=== PATIENT | female | born 1985 | race Caucasian/White ===

== ENCOUNTER → 2017-09-25 | Outpatient (CLI) | payer BC ==
[~2017-09-25] MED LIST: ACYSUS PO
--- NOTE | 2017-09-25 11:31 | Diagnostic Imaging Report ---
PROCEDURE: US Non-ob pelvis comp/trans. TECHNIQUE: Multiple realtime grayscale images were obtained of the pelvis in various projections endovaginally. Transabdominal imaging was also performed. INDICATION: Ovarian dysfunction and follicular monitoring. No prior studies are available for comparison. The uterus measures 7.7 x 4.6 x 4.2 cm. No myometrial mass is identified. The endometrium is 4 mm in thickness. The right ovary measures 3.9 x 5.1 x 3.1 cm and contains a 3.6 x 3.6 x 3.0 cm cyst. There is also a 1.1 x 1.2 x 1.9 cm cyst. Several subcentimeter follicles in the right ovary are also noted. The left ovary contains a 4.1 x 4.3 x 3.8 cm cyst. No free fluid is seen. IMPRESSION: Bilateral ovarian cysts, as described. Dictated by: Dictated on workstation # [id number]
== END ==
LOC: RAD 09:05
PROVIDERS: ATTEND Obstetrics & Gynecology Reproductive Endocrinology
DX: N83.202 Unspecified ovarian cyst, left side (principal); N83.201 Unspecified ovarian cyst, right side
CPT/HCPCS: 36415; 76830; 76856; 82670; 83001; 83002; 84144; 84443

== ENCOUNTER → 2017-10-02 | Outpatient (CLI) | payer BC ==
--- NOTE | 2017-10-02 09:25 | Diagnostic Imaging Report ---
INDICATION: Follicular monitoring. TECHNIQUE: Real-time grayscale images were obtained of the pelvis in various projections both transabdominally and endovaginally. FINDINGS: Uterus measures 9.6 x 6.1 x 5 cm. Endometrial thickness is 1 cm. There are no myometrial or endometrial masses. Both ovaries are normal in size, morphology and demonstrate normal blood flow. There are several cysts in the right ovary. Largest measures 4.1 x 3.5 cm. Second measures 2.2 x 1.3 cm. Third measures 1.4 x 1.3 cm. There is also cyst in the left ovary measuring up to 4.7 x 4.1 cm. Both of these largest cysts are slightly larger when compared to prior examination from 09/25/17. IMPRESSION: Bilateral ovarian cyst as described right greater than left. Dictated by: Dictated on workstation # [id number]
== END ==
LOC: RAD 07:38
PROVIDERS: ATTEND Obstetrics & Gynecology Reproductive Endocrinology
DX: N83.201 Unspecified ovarian cyst, right side (principal); N83.202 Unspecified ovarian cyst, left side
CPT/HCPCS: 36415; 76830; 76856; 82670; 83002; 84144

== ENCOUNTER → 2017-10-04 | Outpatient (CLI) | payer BC ==
--- NOTE | 2017-10-04 10:34 | Diagnostic Imaging Report ---
Examination: Pelvic ultrasound Indication: Follicular monitoring Transvaginal imaging was utilized. The recent exam of 10/02/2017 noted cysts associated with both ovaries. This included a 4.1 x 3.5 CM cyst arising from the right ovary. That cyst is again identified and has decreased in size and now measures 3.4 x 3.5 x 2.4 CM. The prior exam also revealed 2 other cysts associated with the right ovary measuring 2.2 x 1.1 and 1.4 x 1.3 CM. The cysts now measure 2.1 x 1.3 CM and 1.3 x 1.6 CM. In addition since the previous exam 5 other cysts/follicles have developed on the right ovary. These cysts/follicles measure 1.1 x 1.1 CM, 0.7 x 0.8 CM, 0.9 x 0.9 CM, 1.0 x 0.9 CM and 1.0 x 0.8 CM. The previous study also identified a 4.7 x 4.1 CM cysts associated with the left ovary. That cyst is again identified and now measures 4.8 x 3.9 CM. There is good blood flow to each ovary. The uterus is nongravid and similar in size to the prior exam. The uterus measures 9.3 x 5.5 x 5.2 CM. The endometrial lining measures 10 MM. There is no focal mass involving the uterus to suggest a fibroid. There is no solid pelvic mass or free fluid collection to indicate an acute abnormality. Impression: 1. There has been increase in number cysts/follicles arising from the right ovary in the interval since the prior exam. The largest cysts associated with both ovaries seen previously are again evident and not significantly changed. 2. There is no acute pelvic abnormality evident. Dictated by: Dictated on workstation # [id number]
== END ==
LOC: RAD 07:42
PROVIDERS: ATTEND Obstetrics & Gynecology Reproductive Endocrinology
DX: E28.9 Ovarian dysfunction, unspecified (principal)
CPT/HCPCS: 36415; 76830; 76856; 82670; 83002; 84144

== ENCOUNTER → 2018-06-01 | Outpatient (CLI) | payer BC | LOC: LAB 07:44 | PROVIDERS: ATTEND Obstetrics & Gynecology Reproductive Endocrinology | DX: Z31.49 Encounter for other procreative investigation and testing (principal) | CPT/HCPCS: 36415; 82670; 84144; 84443; 84702 ==

== ENCOUNTER → 2018-06-26 | Outpatient (CLI) | payer BC ==
[2018-06-26 08:13] LABS: BASOPHILS % (AUTO) 0 % (0-10); EOSINOPHILS # (AUTO) 0.1 10^3/uL (0.0-0.3); EOSINOPHILS % (AUTO) 3 % (0-10); HEMATOCRIT 41 % (35-52); HEMOGLOBIN 14.3 G/DL (11.5-16.0); LYMPHOCYTES # (AUTO) 1.3 X 10^3 (1.0-4.0); LYMPHOCYTES % (AUTO) 26 % (12-44); MEAN CORPUSCULAR HEMOGLOBIN 30 PG (25-34); MEAN CORPUSCULAR HGB CONC 35 G/DL (32-36); MEAN CORPUSCULAR VOLUME 87 FL (80-99); MONOCYTES # (AUTO) 0.4 X 10^3 (0.0-1.0); MONOCYTES % (AUTO) 8 % (0-12); NEUTROPHILS # (AUTO) 3.1 X 10^3 (1.8-7.8); NEUTROPHILS % (AUTO) 64 % (42-75); PLATELET COUNT 182 10^3/uL (130-400); RED CELL DISTRIBUTION WIDTH 12.8 % (10.0-14.5); WHITE BLOOD COUNT 4.8 10^3/uL (4.3-11.0)
[2018-06-26 08:30] LABS: INR 0.9 (0.8-1.4); PROTHROMBIN TIME PATIENT 12.3 SEC (12.2-14.7)
[2018-06-26 08:39] LABS: ALANINE AMINOTRANSFERASE 25 U/L (0-55); ALBUMIN 4.4 GM/DL (3.2-4.5); ALKALINE PHOSPHATASE 68 U/L (40-136); BILIRUBIN,TOTAL 0.5 MG/DL (0.1-1.0); BUN/CREATININE RATIO 14; CALCIUM 9.7 MG/DL (8.5-10.1); CARBON DIOXIDE 22 MMOL/L (21-32); CHLORIDE 105 MMOL/L (98-107); CREATININE SERUM 0.73 MG/DL (0.60-1.30); GFR ESTIMATED > 60; GLUCOSE 92 MG/DL (70-105); SODIUM 137 MMOL/L (135-145); TOTAL PROTEIN 7.4 GM/DL (6.4-8.2); URIC ACID 5.7 MG/DL (2.6-7.2)
[2018-06-26 08:58] LABS: FREE T4 (FREE THYROXINE) 1.05 NG/DL (0.70-1.48)
[2018-06-26 09:49] LABS: BAND NEUTROPHILS 0 %; BASOPHILS % (MANUAL) 1 %; EOSINOPHILS % (MANUAL) 5 %; LYMPHOCYTES % (MANUAL) 28 %; MONOCYTES % (MANUAL) 5 %; NEUTROPHILS % (MANUAL) 61 %; RBC MORPH NORMAL
== END ==
LOC: LAB 07:43
PROVIDERS: ATTEND Nurse Practitioner Family
DX: E28.2 Polycystic ovarian syndrome (principal); L68.0 Hirsutism; E88.81 Metabolic syndrome and other insulin resistance; Z79.899 Other long term (current) drug therapy
CPT/HCPCS: 36415; 80053; 82024; 82306; 82533; 82627; 82728; 83540; 83735; 84439; 84482; 84550; 84681; 85007; 85027; 85610; 86038

== ENCOUNTER 2018-08-06 16:36 | Emergency (ER) | payer BC ==
[~2018-08-06] VITALS: Ht 188 cm; Wt 140.6 kg
--- OUTSIDE RECORDS SUMMARY | 2018-08-06 16:52 | XMS REPORT | Continuity of Care Document ---
Author Organization Unknown Address Unknown Allergies There is no data. Medications There is no data. Problems Date Dx Coded Attending Type Code Diagnosis Diagnosed By 10/11/2007 JOHN CARRINGTON APRN 278.00 OBESITY UNSPECIFIED 10/11/2007 JOHN CARRINGTON APRN 724.5 BACKACHE UNSPECIFIED 10/11/2007 JOHN CARRINGTON APRN 796.2 ELEVATED BLOOD PRESSURE READING WITHOUT DIAGNOSIS OF HYPERTENSION 10/11/2007 JOHN CARRINGTON APRN V25.40 CONTRACEPTIVE SURVEILLANCE UNSPECIFIED 12/18/2007 JOHN CARRINGTON APRN 477.9 RHINITIS ALLERGIC 03/04/2010 JOHN CARRINGTON APRN 462 PHARYNGITIS ACUTE 03/04/2010 JOHN CARRINGTON APRN 526.9 UNSPECIFIED DISEASE OF THE JAWS 09/11/2013 JOHN CARRINGTON APRN V70.5 PREEMPLOYMENT/PRESCHOOL EXAM Procedures There is no data. Results There is no data. Encounters ACCT No. Visit Date/Time Discharge Status Pt. Type Provider Facility Loc./Unit Complaint [id number] 09/11/2013 09:56:00 09/11/2013 23:59:59 CLS Outpatient JOHN CARRINGTON APRN [id number] 12/02/2014 08:33:03 ACT Document Registration
[2018-08-06] MEDS ORDERED: TETANUS,DIPTH,PERTUSS P/F (BOOSTRIX) 0.5 ML VIAL IM ONE (17:00)
[2018-08-06] MEDS ORDERED: AUGMENTIN 875 MG TAB (AMOXICILLIN/CLAVULANATE) PO SCH (17:00)
[2018-08-06 17:01] VITALS: BP 202/117
[2018-08-06] MEDS ORDERED: AMOX-358 PO (17:01)
--- NOTE | 2018-08-06 17:02 | ED Integumentary General ---
General Chief Complaint: Bite-Animal/Human/Insect Stated Complaint: DOG BITES/SCRATCHES ON BILAT ARMS Nursing Triage Note: PT WAS ATTACKED BY A DOG. DOG IS UNKNOWN DOG AND UNKNOWN IMMUNIZATION STATUS. PT DOES NOT KNOW LAST TDAP SHOT. PT HAS MULTIPLE PUNCTURE WOUNDS THROUGHOUT BILAT ARMS AND HANDS. PRIOR TO ARRIVAL EMS WASHED AND CLEANED ALL WOUNDS. Source: patient Exam Limitations: no limitations History of Present Illness Date Seen by Provider: August 06, 2018 Time Seen by Provider: 16:58 Initial Comments 33-year-old female who presents to the emergency room with complaints of numerous puncture wounds to her upper extremities bilaterally. She reports that she was attempting to break up a fight between her dog and a stray dog when the stray dog bit her arms. She was seen and evaluated by EMS on scene and they irrigated her wounds and cleaned thoroughly. The patient is unsure of her last tetanus vaccine. The dog is in custody by animal control and will be monitored due to unknown immunization status. Bleeding is controlled. Timing/Duration: just prior to arrival Location: hands, extremities (upper) Associated Symptoms: denies symptoms Allergies and Home Medications Allergies Coded Allergies: Amoxicillin (Verified Allergy, Intermediate, 06/21/07) Home Medications Acyclovir 200 Mg/5 Ml Oral.susp, 200 MG PO BID Prescribed by: IFEOMA BRUNSON on 03/05/10 0935 Amoxicillin/Potassium Clav 1 Each Tablet, 1 EACH PO BID Prescribed by: SEEMA ROUSE on 08/06/18 1701 Patient Home Medication List Home Medication List Reviewed: Yes Review of Systems Review of Systems Constitutional: see HPI; No chills, No fever Skin: see HPI, other (puncture wound to hand and forearms after getting bit by a dog.) All Other Systems Reviewed Negative Unless Noted: Yes Past Fdhglwb-Fkxcqr-Aemnyk Hx Past Med/Social Hx: Reviewed Nursing Past Med/Soc Hx Patient Social History Alcohol Use: Occasionally Uses Recreational Drug Use: No Smoking Status: Never a Smoker Recent Foreign Travel: No Contact w/Someone Who Travel: No Recent Infectious Disease Expo: No Recent Hopitalizations: No Physical Abuse: No Sexual Abuse: No Mistreated: No Fear: No Immunizations Up To Date Tetanus Booster (TDap): Unknown Seasonal Allergies Seasonal Allergies: No Past Medical History Surgeries: No Respiratory: No Cardiac: Yes Hypertension Neurological: No Genitourinary: No Gastrointestinal: No Musculoskeletal: No Endocrine: No HEENT: No Cancer: No Psychosocial: No Integumentary: No Blood Disorders: No Family Medical History Reviewed Nursing Family Hx Physical Exam Vital Signs Vital Signs - First Documented 08/06/18 08/06/18 16:45 17:01 Temp 97.6 Pulse 113 Resp 18 B/P (MAP) 202/117 (145) Pulse Ox 99 O2 Delivery Room Air Capillary Refill : Less Than 3 Seconds General Appearance: WD/WN, no apparent distress Cardiovascular: normal peripheral pulses, regular rate, rhythm, no edema, no gallop, no JVD, no murmur Respiratory: chest non-tender, lungs clear, normal breath sounds, no respiratory distress, no accessory muscle use Neurologic/Psychiatric: alert, normal mood/affect, oriented x 3 Skin: normal color, warm/dry Skin Problem Location: upper extremities (hand and forearms) Skin Problem Character: other Progress/Results/Core Measures Results/Orders My Orders Orders - SEEMA ROUSE Dipht,Pertuss(Acell),Tet Adult (Boostrix (08/06/18 17:00) Amoxicillin/Clavulanate Tablet (Augmenti (08/06/18 17:00) Vaccine Administration Single (08/06/18 ) Vital Signs/I&O 08/06/18 08/06/18 16:45 17:01 Temp 97.6 97.6 Pulse 113 113 Resp 18 18 B/P (MAP) 202/117 (145) 202/117 (145) Pulse Ox 99 O2 Delivery Room Air Blood Pressure Mean: 145 Departure Impression Primary Impression: Dog bite Disposition: 01 HOME, SELF-CARE Condition: Stable/Unchanged Departure-Patient Inst. Decision time for Depature: 17:00 Referrals: TOMMIE DUNCAN DO (PCP/Family) Primary Care Physician Patient Instructions: Animal Bites (DC) Add. Discharge Instructions: Take medications as directed. Watch for signs of infection such as increased redness, swelling, drainage, pain. Return back to the emergency room for worsening symptoms or concerns as needed. All discharge instructions reviewed with patient and/or family. Voiced understanding. Scripts Amoxicillin/Potassium Clav (Augmentin 875-125 Tablet) 1 Each Tablet 1 EACH PO BID for 7 Days, #14 TAB 0 Refills Prov: SEEMA ROUSE 08/06/18 SEEMA ROUSE August 06, 2018 17:02
== END 2018-08-06 17:45 | disposition home or self-care (01) ==
LOC: EDUNIT# 16:36 → ER 16:37
DX: S41.151A Open bite of right upper arm, initial encounter (principal); S41.152A Open bite of left upper arm, initial encounter; I10 Essential (primary) hypertension; Z23 Encounter for immunization; Z88.0 Allergy status to penicillin; W54.0XXA Bitten by dog, initial encounter
CPT/HCPCS: 90471; 90715; 99284

== ENCOUNTER → 2018-10-01 | Outpatient (CLI) | payer BC ==
[~2018-10-01] MED LIST changes: +AMOX-358 PO
--- NOTE | 2018-10-01 15:18 | Diagnostic Imaging Report ---
PROCEDURE: US NONOB transvaginal. TECHNIQUE: Multiple real-time grayscale images were obtained of the pelvis in various projections endovaginally. INDICATION: Ovarian dysfunction The previous pelvic ultrasound exam performed on 10/04/17 noted that there had been an increase in the number of cysts/follicles arising from the right ovary in the interval since the prior exam of 10/02/2017. The largest cyst on the right ovary measured 2.2 x 1.1 CM. The largest cyst on left ovary measured 4.8 x 3.9 CM. On this study there is only a single benign-appearing cyst associated with the right ovary. This cyst measures 3.9 x 2.2 x 3.9 CM. There may be a small subcentimeter follicle in this area as well. The left ovary could not be identified. The uterus is nongravid and not enlarged measuring 9.1 x 5.8 x 5.0 cm. The endometrial lining is not thickened measuring 8 MM. There is no focal mass involving the uterus to suggest a fibroid. There is no solid pelvic mass or free fluid collection to suggest an acute abnormality. IMPRESSION: 1. There is now only a single benign-appearing 3.9 x 3.9 CM cyst associated with the right ovary. The left ovary could not be visualized. 2. There is no pelvic mass or free fluid collection noted to suggest an acute abnormality. 3. The uterus is unremarkable. Dictated by: Dictated on workstation # [id number]
== END ==
LOC: RAD 13:17
PROVIDERS: ATTEND Obstetrics & Gynecology Reproductive Endocrinology
DX: N83.201 Unspecified ovarian cyst, right side (principal)
CPT/HCPCS: 76830

== ENCOUNTER → 2021-10-04 | Outpatient (CLI) | payer BC ==
--- NOTE | 2021-10-05 10:12 | Diagnostic Imaging Report ---
Indication: Baseline bilateral digital screening with CAD 3-D CAD is utilized. The current study was also evaluated with a Computer Aided Detection (CAD) system. No priors FINDINGS: Density 2. No breast mass, spiculated lesion, architectural distortion, suspicious calcifications or evidence for malignancy. Skin, nipples and axilla within normal limits. No suspect calcifications. IMPRESSION: Negative baseline screening mammograms BI-RADS Category 1 ACR BI-RADS Category 1: Negative. Result letter will be mailed to the patient. Note: At least 10% of breast cancer is not imaged by mammography. Dictated by: Dictated on workstation # [id number]
== END ==
LOC: RAD 10:15
PROVIDERS: ATTEND Obstetrics & Gynecology
DX: Z12.31 Encounter for screening mammogram for malignant neoplasm of breast (principal)
CPT/HCPCS: 77063; 77067

== ENCOUNTER 2021-12-05 11:27 | Emergency (ER) | payer BC ==
[~2021-12-05] VITALS: Ht 188 cm; Wt 150.0 kg
--- NOTE | 2021-12-05 12:00 | ED Integumentary General ---
General Chief Complaint: Skin/Wound Problems Stated Complaint: RASH ON LOWER LEGS/FEVER/RIGHT LEG PAIN Nursing Triage Note: PT TO ER WITH C/O FEVER, BODY ACHES AND POSS BITE WITH RASH ON R ANKLE. PT STATES SHE CANNOT BEAR WEIGHT ON THE R ANKLE DUE TO PAIN. THE PAIN STARTED YESTERDAY (BHAVANI SIDHU) History of Present Illness Date Seen by Provider: Dec 05, 2021 Time Seen by Provider: 11:35 Initial Comments 36-year-old female presents for right ankle pain. She reports symptoms beginning 2 days ago, no injury or known insect bites. No tick bites in the recent or remote past. She was at the [employer] walk on 12/03/21 and after walking around she noted a rash to her right ankle/foot, mild fever yesterday and pain to the point she couldn't walk on her right leg. She hasn't taken her b/p medicine or any medications for 2 days, because of limited activity. No calf pain. Mild myalgias, generalized. She took Tylenol 1 hour STRATEGY INTERN. Severity: mild Location: extremities (riight LE) Possible Cause: no cause identified Associated Symptoms: change in skin texture, edema (BHAVANI SIDHU) Allergies and Home Medications Allergies Coded Allergies: Amoxicillin (Verified Allergy, Intermediate, 06/21/07) Patient Home Medication List Home Medication List Reviewed: Yes (BHAVANI SIDHU) Acyclovir (Acyclovir) 200 Mg/5 Ml Oral.susp, 200 MG PO BID Prescribed by: IFEOMA BRUNSON on 03/05/10 0935 Amoxicillin/Potassium Clav (Augmentin 875-125 Tablet) 1 Each Tablet, 1 EACH PO BID Prescribed by: SEEMA ROUSE on 08/06/18 1701 Cephalexin (Cephalexin) 500 Mg Tablet, 500 MG PO QID Prescribed by: BHAVANI SIDHU on 12/05/21 1221 Review of Systems Review of Systems Constitutional: no symptoms reported, see HPI Musculoskeletal: see HPI, joint pain (Right ankle and foot) Skin: see HPI, change in color (Erythema), rash (BHAVANI SIDHU) All Other Systems Reviewed Negative Unless Noted: Yes (BHAVANI SIDHU) Past Nrkczkr-Kpvdxv-Twivdt Hx Immunizations Up To Date Tetanus Booster (TDap): Unknown (BHAVANI SIDHU) Seasonal Allergies Seasonal Allergies: No (BHAVANI SIDHU) Past Medical History Surgeries: No Respiratory: No Cardiac: Yes Hypertension Neurological: No Last Menstrual Period: Nov 14, 2021 Genitourinary: No Gastrointestinal: No Musculoskeletal: No Endocrine: No HEENT: No Cancer: No Psychosocial: No Integumentary: No Blood Disorders: No (NAHUMBHAVANI HERRERA) Family Medical History Reviewed Nursing Family Hx (NAHUMBHAVANI HERRERA) Physical Exam Vital Signs Vital Signs - First Documented 12/05/21 12/05/21 11:32 12:29 Temp 37.0 Pulse 113 Resp 18 B/P (MAP) 168/116 (133) Pulse Ox 96 (JASON,BRANDY L DO) Vital Signs Capillary Refill : (NAHUMBHAVANI HERRERA) General Appearance: WD/WN, no apparent distress Cardiovascular: normal peripheral pulses, regular rate, rhythm, no edema Respiratory: chest non-tender, lungs clear Gastrointestinal: normal bowel sounds, non tender, soft Neurologic/Psychiatric: no motor/sensory deficits, alert, normal mood/affect, oriented x 3 Skin: normal color, warm/dry Skin Problem Location: lower extremities (Right, ankle/foot) Skin Problem Character: macules, papules, swelling, tenderness Lymphatic: no adenopathy (NAHUMBHAVANI HERRERA) Progress/Results/Core Measures Results/Orders Vital Signs/I&O 12/05/21 12/05/21 11:32 12:29 Temp 37.0 Pulse 113 103 Resp 18 18 B/P (MAP) 168/116 (133) 144/91 Pulse Ox 96 (JASON,BRANDY L DO) Blood Pressure Mean: 133 Diagnostic Imaging Diagonstic Imaging: Xray Plain Films/CT/US/NM/MRI: ankle Comments NAME: DAM[facility]N [facility] REC#: [id number] PT STATUS: REG ER : 1985 PHYSICIAN: BHAVANI SIDHU ADMIT DATE: 12/05/21/ER Draft Date of Exam:12/05/21 ANKLE, RIGHT, 3 VIEWS INDICATION: Ankle pain COMPARISON: None available TECHNIQUE: 3 radiographs of the right ankle dated 12/05/2021 FINDINGS: No acute fracture or dislocation. No destructive osseous process. The talar dome is unremarkable. Ankle mortise is symmetric. Moderate sized plantar calcaneal enthesophyte. Soft tissue swelling about the ankle, particularly laterally. No suspicious radiopaque foreign body. IMPRESSION: No acute osseous abnormality with soft tissue swelling about the ankle, particularly laterally. Dictated on workstation # [id number] Dict: 12/05/21 1205 Trans: 12/05/21 1207 CV [id number] Interpreted by: KEVIN BURDEN MD Electronically signed by: Reviewed: Reviewed by Me (BHAVANI SIDHU) Departure Communication (Admissions) Conservative care with anti-inflammatories, Tylenol and ice. Patient declines crutches. (BRANDY GOMEZ DO) Impression Primary Impression: Cellulitis Qualified Codes: L03.115 - Cellulitis of right lower limb Additional Impression: Right ankle pain Qualified Codes: M25.571 - Pain in right ankle and joints of right foot Disposition: HOME, SELF-CARE Condition: Improved Departure-Patient Inst. Decision time for Depature: 11:50 (BHAVANI SIDHU) Referrals: TOMMIE DUNCAN DO (PCP/Family) Primary Care Physician Patient Instructions: Cellulitis (Skin Infection), Adult (DC) Add. Discharge Instructions: Take antibiotics as prescribed. Alternate between Tylenol 650 mg and ibuprofen 600 mg every 4 hours for pain. Elevate your right ankle higher than your heart. You can apply ice packs to your right ankle every 2 hours for 20 minutes, avoid plain heat. Follow-up with your primary care provider if symptoms or not improving or worsen. Take all of your routine medications as prescribed. Return to the emergency department for new, urgent healthcare needs. All discharge instructions reviewed with patient and/or family. Voiced understanding. Scripts Cephalexin (Cephalexin) 500 Mg Tablet 500 MG PO QID, #28 TAB 0 Refills Prov: BHAVANI SIDHU 12/05/21 BHAVANI SIDHU Dec 05, 2021 12:00 BRANDY GOMEZ DO Dec 05, 2021 14:59
--- NOTE | 2021-12-05 12:07 | Diagnostic Imaging Report ---
INDICATION: Ankle pain COMPARISON: None available TECHNIQUE: 3 radiographs of the right ankle dated 12/05/2021 FINDINGS: No acute fracture or dislocation. No destructive osseous process. The talar dome is unremarkable. Ankle mortise is symmetric. Moderate sized plantar calcaneal enthesophyte. Soft tissue swelling about the ankle, particularly laterally. No suspicious radiopaque foreign body. IMPRESSION: No acute osseous abnormality with soft tissue swelling about the ankle, particularly laterally. Dictated by: Dictated on workstation # [id number]
[2021-12-05] MEDS ORDERED: CEPH500T PO (12:21)
[2021-12-05 12:29] VITALS: BP 144/91
== END 2021-12-05 12:29 | disposition home or self-care (01) ==
LOC: EDUNIT# 11:27 → ER 11:30
DX: L03.115 Cellulitis of right lower limb (principal)
CPT/HCPCS: 73610

== ENCOUNTER → 2021-12-07 | Outpatient (CLI) | payer BC ==
[~2021-12-07] MED LIST changes: +CEPH500T PO
[2021-12-07 12:09] LABS: BASOPHILS % (AUTO) 0 % (0-10); EOSINOPHILS # (AUTO) 0.1 10^3/uL (0.0-0.3); EOSINOPHILS % (AUTO) 2 % (0-10); HEMATOCRIT 38 % (35-52); HEMOGLOBIN 12.7 g/dL (11.5-16.0); LYMPHOCYTES % (AUTO) 15 % (12-44); MEAN CORPUSCULAR HEMOGLOBIN 29 pg (25-34); MEAN CORPUSCULAR HGB CONC 33 g/dL (32-36); MEAN CORPUSCULAR VOLUME 88 fL (80-99); MONOCYTES # (AUTO) 0.5 10^3/uL (0.0-1.0); MONOCYTES % (AUTO) 8 % (0-12); NEUTROPHILS # (AUTO) 4.7 10^3/uL (1.8-7.8); NEUTROPHILS % (AUTO) 74 % (42-75); PLATELET COUNT 192 10^3/uL (130-400); WHITE BLOOD COUNT 6.3 10^3/uL (4.3-11.0)
[2021-12-07 12:31] LABS: ERYTHROCYTE SEDIMENTATION RATE 39 MM/HR (0-20)
[2021-12-07 12:35] LABS: ALBUMIN 3.6 GM/DL (3.2-4.5); BILIRUBIN,TOTAL 0.3 MG/DL (0.1-1.0); CALCIUM 9.3 MG/DL (8.5-10.1); CREATININE SERUM 0.72 MG/DL (0.60-1.30); POTASSIUM 4.3 MMOL/L (3.6-5.0); TOTAL PROTEIN 7.3 GM/DL (6.4-8.2)
[2021-12-07 13:08] LABS: BILIRUBIN,URINE NEGATIVE (NEGATIVE); CLARITY,URINE CLEAR; COLOR,URINE YELLOW; GLUCOSE, URINE (UA) NEGATIVE (NEGATIVE); KETONES,URINE NEGATIVE (NEGATIVE); LEUKOCYTE ESTERASE ,URINE NEGATIVE (NEGATIVE); NITRITE,URINE NEGATIVE (NEGATIVE); PROTEIN,URINE TRACE (NEGATIVE)
--- NOTE | 2021-12-07 13:55 | Diagnostic Imaging Report ---
PROCEDURE: US right lower extremity venous. TECHNIQUE: Multiple real-time grayscale images were obtained over the right lower extremity in various projections. Additional spectral analysis and color Doppler duplex images were also obtained. INDICATION: Right leg swelling. FINDINGS: Continuous venous flow is present. No intraluminal filling defect is identified. There is normal compressibility and response to augmentation. No abnormal perivascular fluid collection is identified. IMPRESSION: No ultrasound evidence of right lower extremity deep venous thrombosis. Dictated by: Dictated on workstation # [id number]
[2021-12-07 14:18] LABS: BACTERIA,URINE NEGATIVE /HPF; SQUAMOUS EPITHELIAL CELL,UR 0-2 /HPF
== END ==
LOC: LAB 11:35
PROVIDERS: ATTEND Nurse Practitioner Family
DX: L03.115 Cellulitis of right lower limb (principal); M79.604 Pain in right leg; M79.661 Pain in right lower leg; M79.89 Other specified soft tissue disorders
CPT/HCPCS: 36415; 80053; 81000; 85025; 85379; 85652